=== PATIENT | male | born 1965 | race Caucasian/White ===

== ENCOUNTER 2023-09-04 14:35 | Outpatient (AMB) | payer BC, SELFPAY ==
--- NOTE | 2023-09-04 15:04 | MHC.PC.OV ---
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 Right knee pain. Cant get surgery unless he loses weight. Looking to see if you can refer to [facility] to see if they will do the surgery. Allergies No Known Allergies Allergy (Verified 09/04/23 15:04) Medication List - Last Reconciled 09/04/23 by Marian Abdul PA-C albuterol sulfate 90 mcg/actuation inhalation allopurinol 100 mg PO BID atorvastatin 10 mg PO DAILY colchicine mg PO diclofenac sodium 50 mg PO BID furosemide 20 mg PO DAILY levothyroxine 25 mcg PO DAILY lisinopril 10 mg PO DAILY omeprazole 40 mg PO DAILY tramadol 100 mg PO Q12H PRN Tobacco use date assessed: 09/04/23 Dental Screening Dental Screen Date: 09/04/23 Did you have a dental visit in the last 12 months?: Yes Did you have a dental problem in the last 6 months where you did not have access to dental care?: No Was dental information given to patient?: Patient has dentist HPI 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 He states that he is very frustrated because when he left [facility] they were not refilling his medications and he was told initially that he does not have an appointment here until February. His BMI is over 60. He was unable to get on the scale today but his last known weight was 430 lb. He states he could not get on the scale today because of his right knee. He has using a cane and a brace for this knee but it is severely uncomfortable for him. He has been taking diclofenac and tramadol as previously directed. He was on a CSC with ak for tramadol 100 mg twice a day. He has also been using Tylenol without any improvement. He states that when he takes the tramadol does help it does not help for the 1st few hours. He has been working from home because of the pain. He states that [facility] will not do surgery until he loses the weight. He has to lose at least 40 lb for them to consider him for surgery. He states that finally is job we will cover Leslie for weight loss. We have tried to order this numerous times in the past. He can not afford this [id number]. Does not want to meet with a bariatric surgeon. CV: Blood pressure today in the office is 134/88. He is on lisinopril 10 mg daily and furosemide 40 mg for his lower leg edema. He had negative ultrasounds. He has had a negative nuclear stress test in 2021 and echo. He is on atorvastatin 10 mg for his cholesterol. Endo: His last A1c was 6. Last TSH was WNL. He is compliant with levothyroxine 25 mcg. [facility] Medical History (Updated 09/05/23 @ 09:13 by Marian Abdul PA-C) Tubular adenoma of colon SOB (shortness of breath) on exertion Prediabetes Osteoarthritis Lower leg edema Kidney stone Hypothyroidism HTN (hypertension) Hypercholesteremia Gout GERD (gastroesophageal reflux disease) Degenerative joint disease of knee Class 3 severe obesity with serious comorbidity and body mass index (BMI) of 60.0 to 69.9 in adult Chronic neck pain Family History (Updated 09/04/23 @ 15:30 by Jesica Goss CMA) Mother Cancer of breast Father Diabetes Hypercholesteremia Social History Housing: Apartment Patient Tobacco Use Status: Never used Tobacco e-Cigarette/Vaping Use: Never Used Second Hand Smoke Exposure: No service: No Current occupational status: employed 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 1. Little interest or pleasure in doing things: not at all 2. Feeling down, depressed, or hopeless: not at all 3. Trouble falling or staying asleep, or sleeping too much: not at all 4. Feeling tired or having little energy: not at all 5. Poor appetite or overeating: not at all 6. Feeling bad about yourself - or that you are a failure or have let yourself or your family down: not at all 7. Trouble concentrating on things, such as reading the newspaper or watching television: not at all 8. Moving or speaking so slowly that other people could have noticed. Or the opposite - being so fidgety or restless that you have been moving around a lot more than usual: not at all 9. Thoughts that you would be better off or of hurting yourself in some way: not at all Total score: 0 Depression Screening Interpretation: Negative Depression Screening Done: Yes 10698 - PHQ-9 Billing: Yes Source: Developed by Drs. Danish Marquis, Gloria De Leon, Venu Correa and colleagues, with an educational royer from [employer]. Thrive Questionnaire Date Thrive assessed: 09/04/23 I am a: Patient What is your living situation today?: I have a steady place to live Within the past 12 months, did the food you bought not last and you didn't have the money to get more?: Never true Within the past 12 months, did you worry whether your food would run out before you got money to buy more?: Never true Do you have trouble paying for medicines?: No Do you have trouble getting transportation to medical appointments?: No Do you have trouble paying your heating and electricity bill?: No Do you have trouble taking care of your child, family member or friend?: No Do you have trouble with day-to-day activities such as bathing, preparing meals, shopping, managing finances, etc.?: No Are you currently unemployed and looking for a job?: No Are you interested in more education?: No Please select the resources that you would like help with: None Currently or been in a relationship where the following occur: No concerns reported THRIVE Score: 0 AUDIT C Alcohol Use Questionnaire (AUDIT-C) 1. How often do you have a drink containing alcohol?: 2-3 times a week 2. How many drinks containing alcohol do you have on a typical day when you are drinking?: 1 or 2 3. How often do you have six or more drinks on one occasion?: Never Total Score: 3 PRAKASH-7 AMB Questionnaire PRAKASH-7 Date PRAKASH - 7 assessed: 09/04/23 Feeling nervous, anxious, or on edge: 0 = Not at all Not being able to stop or control worryin = Not at all Worrying too much about different things: 0 = Not at all Trouble relaxin = Not at all Being so restless that it is hard to sit still: 0 = Not at all Becoming easily annoyed or irritable: 0 = Not at all Feeling afraid as if something awful might happen: 0 = Not at all Total PRAKASH-7 score (0-4 normal; 5-9 mild; 10-14 moderate; 15-21 severe): 0 Source: Developed by Drs. Danish Marquis, Gloria De Leon, Venu Correa and colleagues, with an educational royer from [employer]. PRAKASH-7 Assessment Billing PRAKASH-7 Assessment Tool: PRAKASH-7 Assessment 46621 Physical exam (Primary Care) Vital Signs: Last Vital Signs Temp 98.3 F 09/04/23 15:19 Pulse 96 09/04/23 15:19 Resp 20 09/04/23 15:19 BP 134/88 09/04/23 15:19 Pulse Ox 95 09/04/23 15:19 Oxygen Delivery Method Room Air 09/04/23 15:19 BMI Assessment/Plan discussion: High (wegovy) BMI High, discussed plan: lifestyle, weight reduction and dietary Tobacco/Smoking Status: Tobacco use Status Tobacco use date assessed 09/04/23 09/04/23 15:06 Patient Tobacco Use Status Never used Tobacco 09/04/23 15:06 e-Cigarette/Vaping Use Never Used 09/04/23 15:06 PHQ-9: PHQ-9 Score PHQ-9: Total score 0 09/04/23 16:00 Depression Screening Interpretation: Negative Thrive Assessment: Date of Thrive Assessment Date Thrive assessed 09/04/23 09/04/23 15:34 Currently or been in a relationship where the following occur: No concerns reported Const Orientation/consciousness: patient oriented x3 HENMT Ears: hearing grossly normal bilaterally Neck Thyroid: Thyroid normal Lymphatic: no lymphadenopathy noted Resp Auscultation: clear to auscultation bilaterally Cardio Rate: regular rate Rhythm: regular rhythm Heart sounds: S1 normal heart sound present and S2 normal heart sound present Skin General skin exam: no rashes or lesions noted Neuro General: patient oriented x3, gait normal and no focal motor deficits Extrem Other: Right knee is tender throughout. Range of motion limited due to pain. Crepitus noted. 1+ pitting edema noted of the bilateral ankles. Assessment and Plan Assessment & Plan (1) Class 3 severe obesity with serious comorbidity and body mass index (BMI) of 60.0 to 69.9 in adult: Code(s): E66.01 - Morbid (severe) obesity due to excess calories; Z68.44 - Body mass index [BMI] 60.0-69.9, adult Qualifiers: Obesity type: due to excess calories Qualified Code(s): E66.01 - Morbid (severe) obesity due to excess calories; Z68.44 - Body mass index [BMI] 60.0-69.9, adult Plan: will start wegovy. Discussed risks, benefits and adverse effects of the medication at length. Discussed the increased risk of nausea, vomiting, pancreatitis, thyroid malignancy. (2) Hypercholesteremia: Code(s): E78.00 - Pure hypercholesterolemia, unspecified Plan: continue atorvastatin and lipids and lfts. (3) HTN (hypertension): Code(s): I10 - Essential (primary) hypertension Plan: wnl. continue current plan (4) Hypothyroidism: Code(s): E03.9 - Hypothyroidism, unspecified Qualifiers: Hypothyroidism type: acquired Qualified Code(s): E03.9 - Hypothyroidism, unspecified Plan: will check tsh (5) Prediabetes: Code(s): R73.03 - Prediabetes Plan: a1c ordered (6) Chronic pain of right knee: Code(s): M25.561 - Pain in right knee; G89.29 - Other chronic pain Plan: will start oxycodone as needed for severe pain. using assistive devices. We did discuss risks and benefits and adverse effects of this medication at length. He has aware of the potential addictive properties to the oxycodone. Referral to [facility] per his request. I did discuss with him that most surgeons will likely require him to have a reduction in his weight. Plan Advised short term follow up. Labs prior to appointment. We also discussed that given his significant obesity he should have a sleep study. This was ordered for him in the past but he never completed this. More than 1 hour was spent in [id number] time today discussing his previous diagnoses from [facility], his weight in his ongoing complications associated with his weight. Orders: Orders Complete Blood Count Auto Diff 09/04/23 E03.9 - Hypothyroidism, unspecified, E66.01 - Morbid (severe) obesity due to excess calories, E78.00 - Pure hypercholesterolemia, unspecified, G89.29 - Other chronic pain, I10 - Essential (primary) hypertension, M25.561 - Pain in right knee, R73.03 - Prediabetes, Z68.44 - Body mass index [BMI] 60.0-69.9, adult Lipid Panel 09/04/23 E03.9 - Hypothyroidism, unspecified, E66.01 - Morbid (severe) obesity due to excess calories, E78.00 - Pure hypercholesterolemia, unspecified, G89.29 - Other chronic pain, I10 - Essential (primary) hypertension, M25.561 - Pain in right knee, R73.03 - Prediabetes, Z68.44 - Body mass index [BMI] 60.0-69.9, adult Hemoglobin A1c 09/04/23 E66.01 - Morbid (severe) obesity due to excess calories, G89.29 - Other chronic pain, M25.561 - Pain in right knee, R73.03 - Prediabetes, Z68.44 - Body mass index [BMI] 60.0-69.9, adult RT home sleep study 09/04/23 E66.01 - Morbid (severe) obesity due to excess calories, I10 - Essential (primary) hypertension, Z68.44 - Body mass index [BMI] 60.0-69.9, adult Comprehensive [place]. Panel Fast 09/04/23 E03.9 - Hypothyroidism, unspecified, E66.01 - Morbid (severe) obesity due to excess calories, E78.00 - Pure hypercholesterolemia, unspecified, G89.29 - Other chronic pain, I10 - Essential (primary) hypertension, M25.561 - Pain in right knee, R73.03 - Prediabetes, Z68.44 - Body mass index [BMI] 60.0-69.9, adult TSH reflex Free T4 09/04/23 E03.9 - Hypothyroidism, unspecified, E66.01 - Morbid (severe) obesity due to excess calories, E78.00 - Pure hypercholesterolemia, unspecified, G89.29 - Other chronic pain, I10 - Essential (primary) hypertension, M25.561 - Pain in right knee, R73.03 - Prediabetes, Z68.44 - Body mass index [BMI] 60.0-69.9, adult Referrals Orthopedics Referral G89.29 - Other chronic pain, M25.561 - Pain in right knee Medications: New semaglutide (weight loss) (Wegovy) administer weeks 1 through 4 of therapy 0.25 mg (0.5 mL) subcut QWEEK 2 mL 3RF oxycodone Partial Fill upon patient request. 5 mg PO BID 30 days PRN 30 tabs 0RF pain tramadol 100 mg (2 x 50 mg) PO Q12H 28 days PRN 112 tabs 2RF pain furosemide 40 mg (2 x 20 mg) PO DAILY 180 tabs 3RF diclofenac sodium 50 mg PO BID 180 tabs 3RF Coding Level of Care Code Est Pt Level 5 (39407) Complex EM visit Add On G2211 Diagnoses Class 3 severe obesity due to excess calories with serious comorbidity and body mass index (BMI) of 60.0 to 69.9 in adult E66.01; Z68.44 Obesity type: due to excess calories Hypercholesteremia E78.00 HTN (hypertension) I10 Acquired hypothyroidism E03.9 Hypothyroidism type: acquired Prediabetes R73.03 Chronic pain of right knee M25.561; G89.29 Additional Codes PRAKASH-7 Assessment Billing - PRAKASH-7 Assessment Tool: PRAKASH-7 Assessment 59082 ([id number])
[2023-09-04 15:19] VITALS: BP 134/88; PULSE 96; RESP 20; TEMP 36.8; O2SAT 95
== END 2023-09-04 16:04 | disposition home or self-care (01) ==
PROVIDERS: PCP Physician Assistant; Visit Provider Physician Assistant
DX: E78.00 Pure hypercholesterolemia, unspecified (principal); E66.01 Morbid (severe) obesity due to excess calories; Z68.44 Body mass index [BMI] 60.0-69.9, adult; I10 Essential (primary) hypertension; E03.9 Hypothyroidism, unspecified; R73.03 Prediabetes; M25.561 Pain in right knee; G89.29 Other chronic pain
CPT/HCPCS: 99215; 99417

== ENCOUNTER 2023-10-09 14:41 | Outpatient (REF) | payer BC, SELFPAY ==
[2023-10-09 18:02] LABS: MANUAL DIFF FLAG NO
[2023-10-09 18:16] LABS: Basophils Percent Auto 0.3 % (0-2); Eosinophils Absolute Auto 0.2 X10*3/uL (0.0-0.4); Eosinophils Percent Auto 2.6 % (0-4); Hematocrit 47.5 % (42.0-52.0); Hemoglobin 15.6 g/dl (14.0-18.0); Imm Gran Abs Auto 0.04 X10*3/uL (0.00-0.03); Imm Gran Pct Auto 0.5 % (0.0-0.4); Lymphocytes Absolute Auto 2.3 X10*3/uL (1.2-4.9); Lymphocytes Percent Auto 25.8 % (20-40); Mean Corpuscular HGB Conc 32.8 g/dl (31.0-36.0); Mean Corpuscular Hemoglobin 30.1 pg (27.0-33.0); Mean Corpuscular Volume 91.7 fL (80.0-98.0); Mean Platelet Volume 9.5 fL (9.4-12.4); Monocytes Absolute Auto 0.9 X10*3/uL (0.1-1.2); Monocytes Percent Auto 9.6 % (2-11); Neutrophils Absolute Auto 5.4 x10*3/uL (2.0-8.3); Neutrophils Percent Auto 61.2 % (45-73); Platelet Count 289 X10*3/uL (160-400); Red Blood Count 5.18 X10*6/uL (4.60-5.80); Red Cell Distribution Width 12.7 % (11.0-16.0); White Blood Count 8.9 X10*3/uL (4.8-10.8)
[2023-10-09 18:18] LABS: Estimated Average Glucose 114 mg/dL; Hemoglobin A1c % 5.6 % (<6.0)
[2023-10-09 18:36] LABS: Alanine Aminotransferase 40 U/L (0-40); Albumin Level 4.3 g/dL (3.5-5.0); Alkaline Phosphatase 68 U/L (39-117); Anion Gap 13 (12-20); Aspartate Amino Transferase 52 U/L (5-37); Bilirubin Total 0.4 mg/dL (0.0-1.0); Blood Urea Nitrogen 22 mg/dL (9-16); Calcium 9.5 mg/dL (8.4-10.2); Carbon Dioxide 28 mmol/L (22-29); Chloride 102 mmol/L (96-108); Cholesterol 167 mg/dL (<200); Estimated Glomerular Filt Rate > 60; Glucose Fasting 98 mg/dL (60-99); HDL Cholesterol 51 mg/dL (>40); LDL Cholesterol Calculated 70 mg/dL (<100); Potassium 4.3 mmol/L (3.3-5.1); Sodium 139 mmol/L (135-145); Total Protein 7.5 g/dL (6.5-8.0); Triglycerides 232 mg/dL (<150)
[2023-10-09 18:43] LABS: TSH reflex Free T4 3.04 uIU/mL (0.32-4.0)
== END 2023-10-09 14:42 | disposition home or self-care (01) ==
LOC: HO.WFDLDS 14:41
PROVIDERS: Visit Provider Physician Assistant
DX: I10 Essential (primary) hypertension (principal); E78.00 Pure hypercholesterolemia, unspecified; E66.01 Morbid (severe) obesity due to excess calories; Z68.44 Body mass index [BMI] 60.0-69.9, adult; R73.03 Prediabetes; M25.561 Pain in right knee; G89.29 Other chronic pain; E03.9 Hypothyroidism, unspecified
CPT/HCPCS: 36415; 80053; 80061; 83036; 84443; 85025

== ENCOUNTER 2023-11-13 10:10 | Outpatient (AMB) | payer BC, SELFPAY ==
--- NOTE | 2023-11-13 10:08 | MHC.PC.OV ---
Vital Signs 11/13/23 10:19 11/13/23 10:28 Height 5 ft 10.28 in Weight 422 lb 2 oz BMI 60.1 BP 133/94 H 117/73 Blood Pressure Location Rt brachial Rt brachial Position Sitting Respiration 18 Pulse 103 H Pulse Source Pulse Oximeter Pulse Oximetry (%) 99 Oxygen Delivery Method Room Air Intake Visit Reasons: follow up referral Intake Note: Follow up Business Continuity Consultant Required: No Allergies No Known Allergies Allergy (Verified 11/13/23 10:09) Medication List - Last Reconciled 11/13/23 by Marian Abdul PA-C albuterol sulfate 90 mcg/actuation inhalation allopurinol 100 mg PO BID atorvastatin 10 mg PO DAILY colchicine 0.6 mg PO BID diclofenac sodium 50 mg PO BID furosemide 40 mg (2 x 20 mg) PO DAILY levothyroxine 25 mcg PO DAILY lisinopril 10 mg PO DAILY omeprazole 40 mg PO DAILY oxycodone 5 mg PO BID PRN 30 days semaglutide (weight loss) (Wegovy) 0.5 mg (0.5 mL) subcut QWEEK tramadol 100 mg (2 x 50 mg) PO Q12H PRN 28 days Tobacco use date assessed: 11/13/23 Dental Screening Dental Screen Date: 09/04/23 HPI follow up referral HPI Details Patient is a 58-year-old male with a significant past medical history of chronic neck pain, degenerative joint disease of the both knees, severe obesity, GERD, gout, hypertension, hyperlipidemia, hypothyroidism, lower leg edema, prediabetes and chronic shortness a breath presenting today for a follow up on his Wegovy. His BMI is over 60. He is down 14 lbs in the last month due to the wegovy. He states that it makes him not hungry. He does get some nausea with this but likes that he is not hungry and losing weight. He is still eating throughout the day. No abdominal pain. Musculoskeletal: Needs knee replacements but his weight is too high to get that done. CV: Blood pressure today in the office is 117/73. He is on lisinopril 10 mg daily and furosemide 40 mg for his lower leg edema. He had negative ultrasounds. He has had a negative nuclear stress test in 2021 and echo. He is on atorvastatin 10 mg for his cholesterol. Endo: His last A1c was 5.6. Last TSH was WNL. He is compliant with levothyroxine 25 mcg. [facility] Medical History (Updated 09/11/23 @ 11:31 by Marian Abdul PA-C) Tubular adenoma of colon SOB (shortness of breath) on exertion Prediabetes Osteoarthritis Lower leg edema Kidney stone Hypothyroidism HTN (hypertension) Hypercholesteremia Gout GERD (gastroesophageal reflux disease) Degenerative joint disease of knee Class 3 severe obesity with serious comorbidity and body mass index (BMI) of 60.0 to 69.9 in adult Chronic neck pain Family History (Updated 09/04/23 @ 15:30 by Jesica Goss CMA) Mother Cancer of breast Father Diabetes Hypercholesteremia Social History Housing: Apartment Patient Tobacco Use Status: Never used Tobacco e-Cigarette/Vaping Use: Never Used Second Hand Smoke Exposure: No service: No Current occupational status: employed 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 Current occupational exposures/hazards: No Cognitive needs: No Hearing needs: No Vision needs: Yes (reading glasses) Questionnaire Thrive Questionnaire Date Thrive assessed: 11/06/23 I am a: Patient What is your living situation today?: I have a steady place to live Within the past 12 months, did you worry whether your food would run out before you got money to buy more?: Never true Do you have trouble paying for medicines?: No Do you have trouble getting transportation to medical appointments?: No Do you have trouble paying your heating and electricity bill?: No Do you have trouble taking care of your child, family member or friend?: No Do you have trouble with day-to-day activities such as bathing, preparing meals, shopping, managing finances, etc.?: No Are you currently unemployed and looking for a job?: No Are you interested in more education?: No THRIVE Score: 0 PRAKASH-7 AMB Questionnaire PRAKASH-7 Date PRAKASH - 7 assessed: 09/04/23 Source: Developed by Drs. Danish Marquis, Gloria De Leon, Venu Correa and colleagues, with an educational royer from [employer]. Physical exam (Primary Care) Vital Signs: Last Vital Signs Pulse 103 H 11/13/23 10:19 Resp 18 11/13/23 10:19 BP 117/73 11/13/23 10:28 Pulse Ox 99 11/13/23 10:19 Oxygen Delivery Method Room Air 11/13/23 10:19 BMI result Body Mass Index 60.1 Tobacco/Smoking Status: Tobacco use Status Tobacco use date assessed 11/13/23 11/13/23 10:09 Patient Tobacco Use Status Never used Tobacco 11/13/23 10:09 e-Cigarette/Vaping Use Never Used 11/13/23 10:09 Thrive Assessment: Date of Thrive Assessment Date Thrive assessed 11/06/23 11/13/23 10:09 Const Orientation/consciousness: patient oriented x3 HENMT Ears: hearing grossly normal bilaterally Neck Thyroid: Thyroid normal Lymphatic: no lymphadenopathy noted Resp Auscultation: clear to auscultation bilaterally Cardio Rate: regular rate Rhythm: regular rhythm Heart sounds: S1 normal heart sound present and S2 normal heart sound present GI Inspection: Yes normal to inspection Palpation (GI): Soft to palpation and Other GI palpation findings present (nontender, no cva tenderness) Auscultation: normoactive bowel sounds Rectal Exam - Male: Yes deferred Skin General skin exam: no rashes or lesions noted Neuro General: patient oriented x3, gait normal and no focal motor deficits Assessment and Plan Assessment & Plan (1) Class 3 severe obesity with serious comorbidity and body mass index (BMI) of 60.0 to 69.9 in adult: Code(s): E66.01 - Morbid (severe) obesity due to excess calories; Z68.44 - Body mass index [BMI] 60.0-69.9, adult Qualifiers: Obesity type: due to excess calories Qualified Code(s): E66.01 - Morbid (severe) obesity due to excess calories; Z68.44 - Body mass index [BMI] 60.0-69.9, adult Plan: We will increase Wegovy to 1 mg. He will let me know if he does not tolerate this. We will follow up in 3 months. Sooner if needed. (2) Hypercholesteremia: Code(s): E78.00 - Pure hypercholesterolemia, unspecified Plan: We will check lipids. Has been working on a low-fat diet. Continue atorvastatin. We will recheck LFTs. (3) HTN (hypertension): Code(s): I10 - Essential (primary) hypertension Plan: WNL. Continue current regimen (4) Hypothyroidism: Code(s): E03.9 - Hypothyroidism, unspecified Qualifiers: Hypothyroidism type: acquired Qualified Code(s): E03.9 - Hypothyroidism, unspecified Plan: Last TSH WNL. Continue levothyroxine. (5) Prediabetes: Code(s): R73.03 - Prediabetes Plan: Last A1c was normal. Orders: Orders Lipid Panel Today E03.9 - Hypothyroidism, unspecified, E66.01 - Morbid (severe) obesity due to excess calories, E78.00 - Pure hypercholesterolemia, unspecified, I10 - Essential (primary) hypertension, R73.03 - Prediabetes, Z68.44 - Body mass index [BMI] 60.0-69.9, adult TSH reflex Free T4 Today E03.9 - Hypothyroidism, unspecified, E66.01 - Morbid (severe) obesity due to excess calories, E78.00 - Pure hypercholesterolemia, unspecified, I10 - Essential (primary) hypertension, R73.03 - Prediabetes, Z68.44 - Body mass index [BMI] 60.0-69.9, adult Comprehensive [place]. Panel Fast Today E03.9 - Hypothyroidism, unspecified, E66.01 - Morbid (severe) obesity due to excess calories, E78.00 - Pure hypercholesterolemia, unspecified, I10 - Essential (primary) hypertension, R73.03 - Prediabetes, Z68.44 - Body mass index [BMI] 60.0-69.9, adult Hemoglobin A1c Today E03.9 - Hypothyroidism, unspecified, E66.01 - Morbid (severe) obesity due to excess calories, E78.00 - Pure hypercholesterolemia, unspecified, I10 - Essential (primary) hypertension, R73.03 - Prediabetes, Z68.44 - Body mass index [BMI] 60.0-69.9, adult Medications: New semaglutide (weight loss) (Wegovy) 1 mg (0.5 mL) subcut QWEEK 2 mL 1RF Discontinued semaglutide (weight loss) (Wegovy) administer weeks 5 through 8 of therapy Discontinued Reason: Doctor's Order 0.5 mg (0.5 mL) subcut QWEEK 2 mL 1RF Coding Level of Care Code Est Pt Level 4 (94835) Complex EM visit Add On G2211 Diagnoses Class 3 severe obesity due to excess calories with serious comorbidity and body mass index (BMI) of 60.0 to 69.9 in adult E66.01; Z68.44 Obesity type: due to excess calories Hypercholesteremia E78.00 HTN (hypertension) I10 Acquired hypothyroidism E03.9 Hypothyroidism type: acquired Prediabetes R73.03
[2023-11-13 10:19] VITALS: BP 133/94; PULSE 103; RESP 18; O2SAT 99; BMI 60.1
[2023-11-13 10:28] VITALS: BP 117/73
== END 2023-11-13 10:49 | disposition home or self-care (01) ==
PROVIDERS: PCP Physician Assistant; Visit Provider Physician Assistant
DX: E66.01 Morbid (severe) obesity due to excess calories (principal); Z68.44 Body mass index [BMI] 60.0-69.9, adult; E78.00 Pure hypercholesterolemia, unspecified; I10 Essential (primary) hypertension; E03.9 Hypothyroidism, unspecified; R73.03 Prediabetes

== ENCOUNTER → 2023-11-13 10:10 | Outpatient (BNVA) | payer BC, SELFPAY | PROVIDERS: PCP Physician Assistant; Visit Provider Physician Assistant | DX: E66.01 Morbid (severe) obesity due to excess calories (principal); Z68.44 Body mass index [BMI] 60.0-69.9, adult; E78.00 Pure hypercholesterolemia, unspecified; I10 Essential (primary) hypertension; E03.9 Hypothyroidism, unspecified; R73.03 Prediabetes ==

== ENCOUNTER 2024-02-05 13:51 | Outpatient (AMB) | payer BC, SELFPAY ==
--- NOTE | 2024-02-05 14:13 | A.OFFPC_ITS ---
Vital Signs 02/05/24 14:18 Height 5 ft 10.28 in Weight 417 lb 6 oz BMI 59.4 BP 118/72 Blood Pressure Location Lt brachial Pulse 89 Pulse Source Pulse Oximeter Pulse Oximetry (%) 96 Oxygen Delivery Method Room Air Intake Visit Reasons: htn Intake Note: HTN follow up Allergies No Known Allergies Allergy (Verified 11/13/23 10:09) Medication List - Last Reconciled 02/05/24 by Marian Abdul PA-C albuterol sulfate 90 mcg/actuation inhalation allopurinol 100 mg PO BID atorvastatin 10 mg PO DAILY colchicine 0.6 mg PO BID diclofenac sodium 50 mg PO BID furosemide 40 mg (2 x 20 mg) PO DAILY levothyroxine 25 mcg PO DAILY lisinopril 10 mg PO DAILY omeprazole 40 mg PO DAILY oxycodone 5 mg PO BID PRN 30 days semaglutide (weight loss) (Leslie) 2.4 mg (0.75 mL) subcut QWEEK tramadol 100 mg (2 x 50 mg) PO Q12H PRN 28 days Tobacco use date assessed: 11/13/23 Dental Screening Dental Screen Date: 09/04/23 HPI htn HPI Details History of Present Illness The patient is a 58-year-old male presenting with concerns related to hypertension, hyperlipidemia, thyroid function, and weight management. He reports a blood pressure reading of 117/82 mmHg and is currently on lisinopril 10 mg daily and furosemide for hypertension. His cholesterol management includes atorvastatin. The patient has been managing obesity with semaglutide, reporting a weight loss of nearly 30 pounds in about four and a half months and has only been on 2.4 mg weekly for the last two weeks. He experiences significant nausea post-injection, which has improved over time. He has tried and failed numerous diets including Atkins, [place], keto etc.. Patient's knee pain persists, likely exacerbated by obesity. He frequently experiences knee pain, but it has not shown improvement even with weight loss efforts. His thyroid function is managed with levothyroxine, taken at night. Gout has been under control with colchicine taken as needed for flares and allopurinol. Health Maintenance - Engaged in weight management with diet tomy modifications and medication (semaglutide). - Planning to begin physical activity us ing a rowing machine. - Scheduled for a colonoscopy in February . - Discussed downloading an eduar for dieta ry management (Right BMI). - Blood pressure and cholesterol managem ent with ongoing medication. - Discussion of a lifestyle eduar develope d for bariatric patient weight management. Social History - Plans to retire in 16 months. - Reports financial constraints with a [facility] management, uses a Health Reimbursement Arrangement (HRA). - Currently practices a structured dieta ry plan with detailed meal preparations focused on low caloric intake. Review of Systems - Musculoskeletal: Reports persistent kn ee pain. - Gastrointestinal: Reports nausea assoc iated with semaglutide usage. Physical Exam General: Well developed, well nourished, in no acute distress. Appears stated age. Head: Normocephalic, atraumatic. Neck: Supple, no adenopathy or thyromegaly. Lungs: Clear to auscultation bilaterally. No rales, rhonchi or wheeze noted. Good air flow in all fish. Heart: Regular rate and rhythm. Extremities: No clubbing, cyanosis nor edema is noted. Skin: No rashes, ulcers, or lesions noted. Turgor is good. Skin color is good. Hair and nails are without abnormalities. Psych: Normal eye contact, affect and mood appropriate, and normal interactions. Patient is alert and appropriate to context. Results Plan - Continue lisinopril 10 mg for blood pr essure control and monitor. - Maintain Atorvastatin for hyperlipidem ia management. - Schedule labs for cholesterol, liver f unction, kidney function, electrolytes, and thyroid function. - Continue semaglutide, encourage monito ring and management of nausea. - Suggest beginning physical activity as planned with the rowing machine. - Manage knee pain conservatively; consi pelon orthopedic evaluation if persists. - Continue allopurinol and colchicine as needed for gout, avoid daily colchicine use. - Will review PSA levels with routine la bs to check prostate health. Patient was informed and verbally consented to the use of an ambient scribe for clinic note documentation during this visit. Discussion Notes I discussed the importance of continuing the current hypertension and hyperlipidemia management. The significance of monitoring thyroid and cholesterol levels through scheduled labs was emphasized. I pointed out that weight loss takes time and the patient is making satisfactory progress on semaglutide, despite some nausea. I advised starting an exercise regimen with the rowing machine to help with weight management and potential reduction in knee pain. We talked about the financial implications of Wegovy and how HRA can offset some costs. I reassured the patient that we would petition for insurance coverage of [place] considering the documented success after the first year. Patient was encouraged to follow the dietary eduar developed for weight control. Patient Instructions [facility] Medical History (Updated 09/11/23 @ 11:31 by Marian Abdul PA-C) Tubular adenoma of colon SOB (shortness of breath) on exertion Prediabetes Osteoarthritis Lower leg edema Kidney stone Hypothyroidism HTN (hypertension) Hypercholesteremia Gout GERD (gastroesophageal reflux disease) Degenerative joint disease of knee Class 3 severe obesity with serious comorbidity and body mass index (BMI) of 60.0 to 69.9 in adult Chronic neck pain Family History (Updated 09/04/23 @ 15:30 by Jesica Goss CMA) Mother Cancer of breast Father Diabetes Hypercholesteremia Social History Housing: Apartment Patient Tobacco Use Status: Never used Tobacco e-Cigarette/Vaping Use: Never Used Second Hand Smoke Exposure: No service: No Current occupational status: employed 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 Current occupational exposures/hazards: No Cognitive needs: No Hearing needs: No Vision needs: Yes (reading glasses) Questionnaire Thrive Questionnaire Date Thrive assessed: 11/06/23 I am a: Patient What is your living situation today?: I have a steady place to live Within the past 12 months, did the food you bought not last and you didn't have the money to get more?: Never true Within the past 12 months, did you worry whether your food would run out before you got money to buy more?: Never true Do you have trouble paying for medicines?: No Do you have trouble getting transportation to medical appointments?: No Do you have trouble paying your heating and electricity bill?: No Do you have trouble taking care of your child, family member or friend?: No Do you have trouble with day-to-day activities such as bathing, preparing meals, shopping, managing finances, etc.?: No Are you currently unemployed and looking for a job?: No Are you interested in more education?: No Please select the resources that you would like help with: None Currently or been in a relationship where the following occur: No concerns reported THRIVE Score: 0 PRAKASH-7 AMB Questionnaire PRAKASH-7 Date PRAKASH - 7 assessed: 09/04/23 Source: Developed by Tony Brownet B.W. Moises, Venu Correa and colleagues, with an educational royer from [employer]. Physical exam (Primary Care) Vital Signs: Last Vital Signs Pulse 89 02/05/24 14:18 BP 118/72 02/05/24 14:18 Pulse Ox 96 02/05/24 14:18 Oxygen Delivery Method Room Air 02/05/24 14:18 BMI result Body Mass Index 59.4 Tobacco/Smoking Status: Tobacco use Status Tobacco use date assessed 11/13/23 02/05/24 14:15 Patient Tobacco Use Status Never used Tobacco 02/05/24 14:15 e-Cigarette/Vaping Use Never Used 02/05/24 14:15 Thrive Assessment: Date of Thrive Assessment Date Thrive assessed 11/06/23 02/05/24 14:15 Currently or been in a relationship where the following occur: No concerns reported Coding Level of Care Code Est Pt Level 4 (98952) Complex EM visit Add On G2211 Diagnoses Hypercholesteremia E78.00 HTN (hypertension) I10 Acquired hypothyroidism E03.9 Hypothyroidism type: acquired Assessment & Plan Assessment & Plan (1) Hypercholesteremia: Code(s): E78.00 - Pure hypercholesterolemia, unspecified Category: Medical (2) HTN (hypertension): Code(s): I10 - Essential (primary) hypertension Category: Medical (3) Hypothyroidism: Code(s): E03.9 - Hypothyroidism, unspecified Category: Medical Qualifiers: Hypothyroidism type: acquired Qualified Code(s): E03.9 - Hypothyroidism, unspecified Plan . Orders: Orders Comprehensive [place]. Panel Fast Today E03.9 - Hypothyroidism, unspecified, E78.00 - Pure hypercholesterolemia, unspecified, I10 - Essential (primary) hypertension TSH reflex Free T4 Today E03.9 - Hypothyroidism, unspecified, E78.00 - Pure hypercholesterolemia, unspecified, I10 - Essential (primary) hypertension Prostate Specific Antigen Scr Today Z01.89 - Encounter for other specified special examinations Lipid Panel Today E03.9 - Hypothyroidism, unspecified, E78.00 - Pure hypercholesterolemia, unspecified, I10 - Essential (primary) hypertension Complete Blood Count Auto Diff Today E03.9 - Hypothyroidism, unspecified, E78.00 - Pure hypercholesterolemia, unspecified, I10 - Essential (primary) hypertension
[2024-02-05 14:18] VITALS: BP 118/72; PULSE 89; O2SAT 96; BMI 59.4
== END 2024-02-05 14:49 | disposition home or self-care (01) ==
PROVIDERS: PCP Physician Assistant; Visit Provider Physician Assistant
DX: E78.00 Pure hypercholesterolemia, unspecified (principal); I10 Essential (primary) hypertension; E03.9 Hypothyroidism, unspecified

== ENCOUNTER 2024-03-11 09:30 | Outpatient (AMB) | payer BC, SELFPAY ==
--- NOTE | 2024-03-11 09:27 | MHC.PC.OV ---
Intake Visit Reasons: discuss covered weight loss drug Intake Note: Discuss medication for weight loss covered by insurance. Engineering Coordinator Required: No Allergies No Known Allergies Allergy (Verified 03/11/24 09:28) Tobacco use date assessed: 11/13/23 Dental Screening Dental Screen Date: 09/04/23 [facility] Medical History (Updated 09/11/23 @ 11:31 by Marian Abdul PA-C) Tubular adenoma of colon SOB (shortness of breath) on exertion Prediabetes Osteoarthritis Lower leg edema Kidney stone Hypothyroidism HTN (hypertension) Hypercholesteremia Gout GERD (gastroesophageal reflux disease) Degenerative joint disease of knee Class 3 severe obesity with serious comorbidity and body mass index (BMI) of 60.0 to 69.9 in adult Chronic neck pain Family History (Updated 09/04/23 @ 15:30 by Jesica Goss CMA) Mother Cancer of breast Father Diabetes Hypercholesteremia Social History Housing: Apartment Patient Tobacco Use Status: Never used Tobacco e-Cigarette/Vaping Use: Never Used Second Hand Smoke Exposure: No service: No Current occupational status: employed 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 Danish Marquis, Gloria De Leon, Venu Correa and colleagues, with an educational royer from [employer]. Physical exam (Primary Care) Tobacco/Smoking Status: Tobacco use Status Tobacco use date assessed 11/13/23 02/05/24 14:15 Patient Tobacco Use Status Never used Tobacco 02/05/24 14:15 e-Cigarette/Vaping Use Never Used 02/05/24 14:15 Thrive Assessment: Date of Thrive Assessment Date Thrive assessed 11/06/23 02/05/24 14:15 Telehealth Telehealth Telehealth Platform: Telephone Location of provider rendering services: other (work) Location of patient: address on file Patient Identification confirmed using: Name, : Yes Telehealth method: voice only Patient verbally consented to treatment: Yes Patient verbally consented to billing insurance company: Yes Patient informed of any privacy concerns related to visit: Yes Coding
--- NOTE | 2024-03-11 10:15 | A.OFFVIS_ITS ---
Intake Visit Reasons: discuss covered weight loss drug Allergies No Known Allergies Allergy (Verified 03/11/24 09:28) Medication List - Last Reconciled 03/11/24 by Marian Abdul PA-C albuterol sulfate 90 mcg/actuation inhalation allopurinol 100 mg PO BID atorvastatin 10 mg PO DAILY colchicine 0.6 mg PO BID diclofenac sodium 50 mg PO BID furosemide 40 mg (2 x 20 mg) PO DAILY levothyroxine 25 mcg PO DAILY lisinopril 10 mg PO DAILY omeprazole 40 mg PO DAILY semaglutide (weight loss) (Wegovy) 2.4 mg (0.75 mL) subcut QWEEK HPI HPI discuss covered weight loss drug: Details: The patient is a 58-year-old male presenting with concerns related to weight management. The patient has been managing obesity with semaglutide, reporting a weight loss of nearly 35 pounds in about 5 months and is on 2.4 mg weekly and is doing great. He does not want to switch medications as it took him a while to build up to the 2.4 mg. He states that he is going to continue to pay [id number] for this. He has tried and failed numerous diets including Atkins, [place], keto etc.. [facility] Medical History (Updated 09/11/23 @ 11:31 by Marian Abdul PA-C) Tubular adenoma of colon SOB (shortness of breath) on exertion Prediabetes Osteoarthritis Lower leg edema Kidney stone Hypothyroidism HTN (hypertension) Hypercholesteremia Gout GERD (gastroesophageal reflux disease) Degenerative joint disease of knee Class 3 severe obesity with serious comorbidity and body mass index (BMI) of 60.0 to 69.9 in adult Chronic neck pain Family History (Updated 09/04/23 @ 15:30 by Jesica Goss CMA) Mother Cancer of breast Father Diabetes Hypercholesteremia Social History Housing: Apartment Patient Tobacco Use Status: Never used Tobacco e-Cigarette/Vaping Use: Never Used Second Hand Smoke Exposure: No service: No Current occupational status: employed 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 Current occupational exposures/hazards: No Cognitive needs: No Hearing needs: No Vision needs: Yes (reading glasses) Telehealth Telehealth Telehealth Platform: Telephone Location of provider rendering services: practice address Location of patient: address on file Patient Identification confirmed using: Name, : Yes Telehealth method: voice only Patient verbally consented to treatment: Yes Patient verbally consented to billing insurance company: Yes Patient informed of any privacy concerns related to visit: Yes Minutes spent on Phone/Video with Pt.: 11 Assessment & Plan Assessment & Plan (1) Class 3 severe obesity with serious comorbidity and body mass index (BMI) of 60.0 to 69.9 in adult: Code(s): E66.01 - Morbid (severe) obesity due to excess calories; Z68.44 - Body mass index [BMI] 60.0-69.9, adult Category: Medical Qualifiers: Obesity type: due to excess calories Qualified Code(s): E66.01 - Morbid (severe) obesity due to excess calories; Z68.44 - Body mass index [BMI] 60.0- 69.9, adult Plan: He does not want to switch medications. We did review that his insurance wants him to try and fail phentermine or contrave 1st but he does not want to take this. He is finally in the 2.4 mg of Wegovy and doing well. We will continue current regimen and follow up in a few months. (2) HTN (hypertension): Code(s): I10 - Essential (primary) hypertension Category: Medical Plan: Reports normal readings. Continue lisinopril and furosemide. Coding Level of Care Code Tele Est Pt Level 2 (42342) Diagnoses Class 3 severe obesity due to excess calories with serious comorbidity and body mass index (BMI) of 60.0 to 69.9 in adult E66.01; Z68.44 Obesity type: due to excess calories HTN (hypertension) I10
== END 2024-03-11 10:11 | disposition home or self-care (01) ==
LOC: HO.HMCFM 09:30
PROVIDERS: PCP Physician Assistant; Visit Provider Physician Assistant
DX: E66.01 Morbid (severe) obesity due to excess calories (principal); Z68.44 Body mass index [BMI] 60.0-69.9, adult; I10 Essential (primary) hypertension

== ENCOUNTER 2024-05-06 09:59 | Outpatient (REF) | payer BC, SELFPAY ==
[2024-05-06 11:23] LABS: MANUAL DIFF FLAG NO
[2024-05-06 11:34] LABS: Basophils Absolute Auto 0.1 X10*3/uL (0.0-0.2); Basophils Percent Auto 0.5 % (0-2); Eosinophils Absolute Auto 0.2 X10*3/uL (0.0-0.4); Eosinophils Percent Auto 1.7 % (0-4); Hematocrit 47.1 % (42.0-52.0); Hemoglobin 15.7 g/dl (14.0-18.0); Imm Gran Abs Auto 0.06 X10*3/uL (0.00-0.03); Imm Gran Pct Auto 0.6 % (0.0-0.4); Lymphocytes Absolute Auto 2.3 X10*3/uL (1.2-4.9); Lymphocytes Percent Auto 24.8 % (20-40); Mean Corpuscular HGB Conc 33.3 g/dl (31.0-36.0); Mean Corpuscular Hemoglobin 30.1 pg (27.0-33.0); Mean Corpuscular Volume 90.2 fL (80.0-98.0); Monocytes Absolute Auto 0.7 X10*3/uL (0.1-1.2); Monocytes Percent Auto 7.2 % (2-11); Neutrophils Absolute Auto 6.1 x10*3/uL (2.0-8.3); Neutrophils Percent Auto 65.2 % (45-73); Platelet Count 331 X10*3/uL (160-400); Red Blood Count 5.22 X10*6/uL (4.60-5.80); Red Cell Distribution Width 12.6 % (11.0-16.0); White Blood Count 9.4 X10*3/uL (4.8-10.8)
[2024-05-06 11:42] LABS: Estimated Average Glucose 111 mg/dL; Hemoglobin A1C 148.1789 umol/L; Hemoglobin A1c % 5.5 % (<6.0); Total Hemoglobin (HGBA1C) 4046.5591 umol/L
[2024-05-06 12:12] LABS: Prostate Specific Antigen Scr 0.73 ng/mL (<0.05-4.0)
[2024-05-06 12:18] LABS: Alanine Aminotransferase 17 U/L (0-40); Albumin Level 4.4 g/dL (3.5-5.0); Alkaline Phosphatase 57 U/L (39-117); Anion Gap 14 (12-20); Aspartate Amino Transferase 25 U/L (5-37); Bilirubin Total 0.7 mg/dL (0.0-1.0); Blood Urea Nitrogen 19 mg/dL (9-16); Calcium 9.4 mg/dL (8.4-10.2); Carbon Dioxide 26 mmol/L (22-29); Chloride 102 mmol/L (96-108); Cholesterol 156 mg/dL (<200); Estimated Glomerular Filt Rate > 60; Glucose Fasting 91 mg/dL (60-99); HDL Cholesterol 51 mg/dL (>40); LDL Cholesterol Calculated 79 mg/dL (<100); Potassium 3.9 mmol/L (3.3-5.1); Sodium 138 mmol/L (135-145); TSH reflex Free T4 1.98 uIU/mL (0.32-4.0); Total Protein 8.1 g/dL (6.5-8.0); Triglycerides 132 mg/dL (<150)
== END 2024-05-06 10:00 | disposition home or self-care (01) ==
LOC: HO.WFDLDS 09:59
PROVIDERS: Visit Provider Physician Assistant
DX: I10 Essential (primary) hypertension (principal); E78.00 Pure hypercholesterolemia, unspecified; E03.9 Hypothyroidism, unspecified; R73.03 Prediabetes; E66.01 Morbid (severe) obesity due to excess calories; Z68.44 Body mass index [BMI] 60.0-69.9, adult; Z01.89 Encounter for other specified special examinations; Z12.5 Encounter for screening for malignant neoplasm of prostate
CPT/HCPCS: 36415; 80053; 80061; 83036; 84153; 84443; 85025

== ENCOUNTER 2024-05-13 13:47 | Outpatient (AMB) | payer BC, SELFPAY ==
--- NOTE | 2024-05-13 14:07 | A.OFFPC_ITS ---
Vital Signs 05/13/24 14:09 Height 5 ft 10.28 in Weight 411 lb 6 oz BMI 58.6 BP 124/86 Blood Pressure Location Rt brachial Position Sitting Respiration 18 Pulse 103 H Pulse Source Pulse Oximeter Pulse Oximetry (%) 95 Oxygen Delivery Method Room Air Intake Visit Reasons: weight check, bp Intake Note: Follow up weight and blood pressure Sales And Distribution Clerk Required: No Allergies No Known Allergies Allergy (Verified 05/13/24 14:08) Tobacco use date assessed: 05/13/24 Dental Screening Dental Screen Date: 09/04/23 HPI weight check, bp HPI Details Patient is a 59-year-old male presenting with concerns related to hypertension, hyperlipidemia, thyroid function, and weight management. CV: blood pressure reading of 124/86 and is currently on lisinopril 10 mg daily and furosemide for hypertension. His cholesterol management includes atorvastatin. General: The patient has been managing obesity with semaglutide. He is happy that he is still losing weight despite not making the best diet choices over the last couple of months. He states it has been stressful at home between selling a house and buying a bar. He states that he has not been eating the best but is still losing and since our last visit has lost 6 lb. Overall he is close to about 40 lb that he has lost since starting Wegovy. He has tried and failed numerous diets including Atkins, [place], keto etc.. Musculoskeletal: Patient's knee pain persists, likely exacerbated by obesity. He frequently experiences knee pain, but it has not shown improvement even with weight loss efforts. Gout has been under control with colchicine taken as needed for flares and allopurinol. Endo: His thyroid function is managed with levothyroxine. [facility] Medical History (Updated 05/13/24 @ 14:39 by Marian Abdul PA-C) Tubular adenoma of colon SOB (shortness of breath) on exertion Prediabetes Osteoarthritis Lower leg edema Kidney stone Hypothyroidism HTN (hypertension) Hypercholesteremia Gout GERD (gastroesophageal reflux disease) Degenerative joint disease of knee Class 3 severe obesity with serious comorbidity and body mass index (BMI) of 60.0 to 69.9 in adult Chronic neck pain Family History Mother Cancer of breast Father Diabetes Hypercholesteremia Social History (Updated 05/13/24 @ 14:08 by Jesica Goss CMA) Housing: Apartment Alcohol intake: current Patient Tobacco Use Status: Never used Tobacco e-Cigarette/Vaping Use: Never Used Second Hand Smoke Exposure: No service: No Current occupational status: employed 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 1. Little interest or pleasure in doing things: not at all 2. Feeling down, depressed, or hopeless: not at all 3. Trouble falling or staying asleep, or sleeping too much: not at all 4. Feeling tired or having little energy: not at all 5. Poor appetite or overeating: not at all 6. Feeling bad about yourself - or that you are a failure or have let yourself or your family down: not at all 7. Trouble concentrating on things, such as reading the newspaper or watching television: not at all 8. Moving or speaking so slowly that other people could have noticed. Or the opposite - being so fidgety or restless that you have been moving around a lot more than usual: not at all 9. Thoughts that you would be better off or of hurting yourself in some way: not at all Total score: 0 Depression Screening Interpretation: Negative Depression Screening Done: Yes 31267 - PHQ-9 Billing: Yes Source: Developed by Drs. Danish Marquis, Gloria De Leon, Venu Correa and colleagues, with an educational royer from [employer]. Thrive Questionnaire Date Thrive assessed: 11/06/23 I am a: Patient What is your living situation today?: I choose not to answer this question Within the past 12 months, did the food you bought not last and you didn't have the money to get more?: Never true Within the past 12 months, did you worry whether your food would run out before you got money to buy more?: Never true Do you have trouble paying for medicines?: No Do you have trouble getting transportation to medical appointments?: No Do you have trouble paying your heating and electricity bill?: No Do you have trouble taking care of your child, family member or friend?: No Do you have trouble with day-to-day activities such as bathing, preparing meals, shopping, managing finances, etc.?: No Are you currently unemployed and looking for a job?: No Are you interested in more education?: No Please select the resources that you would like help with: None Currently or been in a relationship where the following occur: No concerns reported THRIVE Score: 0 AUDIT C Alcohol Use Questionnaire (AUDIT-C) 1. How often do you have a drink containing alcohol?: 2-4 times a month 2. How many drinks containing alcohol do you have on a typical day when you are drinking?: 3 or 4 3. How often do you have six or more drinks on one occasion?: Less than monthly Total Score: 4 PRAKASH-7 AMB Questionnaire PRAKASH-7 Date PRAKASH - 7 assessed: 05/13/24 Feeling nervous, anxious, or on edge: 0 = Not at all Not being able to stop or control worryin = Not at all Worrying too much about different things: 0 = Not at all Trouble relaxin = Not at all Being so restless that it is hard to sit still: 0 = Not at all Becoming easily annoyed or irritable: 0 = Not at all Feeling afraid as if something awful might happen: 0 = Not at all Total PRAKASH-7 score (0-4 normal; 5-9 mild; 10-14 moderate; 15-21 severe): 0 Source: Developed by Drs. Danish Marquis, Gloria De Leon, Venu Correa and colleagues, with an educational royer from [employer]. PRAKASH-7 Assessment Billing PRAKASH-7 Assessment Tool: PRAKASH-7 Assessment 44594 Physical exam (Primary Care) Vital Signs: Last Vital Signs Pulse 103 H 05/13/24 14:09 Resp 18 05/13/24 14:09 BP 124/86 05/13/24 14:09 Pulse Ox 95 05/13/24 14:09 Oxygen Delivery Method Room Air 05/13/24 14:09 BMI result Body Mass Index 58.6 Tobacco/Smoking Status: Tobacco use Status Tobacco use date assessed 05/13/24 05/13/24 14:10 Patient Tobacco Use Status Never used Tobacco 05/13/24 14:10 e-Cigarette/Vaping Use Never Used 05/13/24 14:10 PHQ-9: PHQ-9 Score PHQ-9: Total score 0 05/13/24 14:27 Depression Screening Interpretation: Negative Thrive Assessment: Date of Thrive Assessment Date Thrive assessed 11/06/23 05/13/24 14:10 Currently or been in a relationship where the following occur: No concerns reported Const Orientation/consciousness: patient oriented x3 HENMT Ears: hearing grossly normal bilaterally Neck Thyroid: Thyroid normal Lymphatic: no lymphadenopathy noted Resp Auscultation: clear to auscultation bilaterally Cardio Rate: regular rate Rhythm: regular rhythm Heart sounds: S1 normal heart sound present and S2 normal heart sound present GI Inspection: Yes normal to inspection Palpation (GI): Soft to palpation and Other GI palpation findings present (nontender, no cva tenderness) Auscultation: normoactive bowel sounds Rectal Exam - Male: Yes deferred Skin General skin exam: no rashes or lesions noted Neuro General: patient oriented x3, gait normal and no focal motor deficits Results Reviewed Results Reviewed: Laboratory Tests 10/09/23 05/06/24 14:43 10:00 WBC 8.9 9.4 RBC 5.18 5.22 Hgb 15.6 15.7 Hct 47.5 47.1 Plt Count 289 331 Sodium 139 138 Potassium 4.3 3.9 Chloride 102 102 Carbon Dioxide 28 26 Anion Gap 13 14 BUN 19 H Creatinine 1.06 1.02 Estimated GFR > 60 > 60 Fasting Glucose 91 Hemoglobin A1c % 5.6 5.5 AST 52 H ALT 40 Triglycerides 232 H 132 Cholesterol 167 156 LDL Cholesterol, Calc 70 79 HDL Cholesterol 51 51 PSA Screen 0.73 TSH 3.04 1.98 Coding Level of Care Code Est Pt Level 4 (09165) Complex EM visit Add On G2211 Diagnoses HTN (hypertension) I10 Hypercholesteremia E78.00 Acquired hypothyroidism E03.9 Hypothyroidism type: acquired Gout M10.9 Class 3 severe obesity due to excess calories with serious comorbidity and body mass index (BMI) of 60.0 to 69.9 in adult E66.01; Z68.44 Obesity type: due to excess calories Additional Codes PRAKASH-7 Assessment Billing - PRAKASH-7 Assessment Tool: PRAKASH-7 Assessment 73520 ([id number]) PHQ-9 - 34124 - PHQ-9 Billing: Yes ([id number]) Assessment & Plan Assessment & Plan (1) HTN (hypertension): Code(s): I10 - Essential (primary) hypertension Category: Medical Plan: Continue current regimen (2) Hypercholesteremia: Code(s): E78.00 - Pure hypercholesterolemia, unspecified Category: Medical Plan: Lipids well-controlled. Reviewed labs today. (3) Hypothyroidism: Code(s): E03.9 - Hypothyroidism, unspecified Category: Medical Qualifiers: Hypothyroidism type: acquired Qualified Code(s): E03.9 - Hypothyroidism, unspecified Plan: TSH WNL. Continue levothyroxine. (4) Gout: Code(s): M10.9 - Gout, unspecified Category: Medical Plan: We will monitor uric acid and gout flares. (5) Class 3 severe obesity with serious comorbidity and body mass index (BMI) of 60.0 to 69.9 in adult: Code(s): E66.01 - Morbid (severe) obesity due to excess calories; Z68.44 - Body mass index [BMI] 60.0-69.9, adult Category: Medical Qualifiers: Obesity type: due to excess calories Qualified Code(s): E66.01 - Morbid (severe) obesity due to excess calories; Z68.44 - Body mass index [BMI] 60.0- 69.9, adult Plan: Continue semaglutide. Orders: Orders Uric Acid 05/13/24 M10.9 - Gout, unspecified
[2024-05-13 14:09] VITALS: BP 124/86; PULSE 103; RESP 18; O2SAT 95; BMI 58.6
== END 2024-05-13 14:45 | disposition home or self-care (01) ==
LOC: HO.HMCFM 13:48
PROVIDERS: PCP Physician Assistant; Visit Provider Physician Assistant
DX: I10 Essential (primary) hypertension (principal); E78.00 Pure hypercholesterolemia, unspecified; E66.01 Morbid (severe) obesity due to excess calories; Z68.44 Body mass index [BMI] 60.0-69.9, adult; E03.9 Hypothyroidism, unspecified; M10.9 Gout, unspecified

== ENCOUNTER → 2024-05-13 13:47 | Outpatient (BNVA) | payer BC, SELFPAY | PROVIDERS: PCP Physician Assistant; Visit Provider Physician Assistant | DX: I10 Essential (primary) hypertension (principal); E78.00 Pure hypercholesterolemia, unspecified; E03.9 Hypothyroidism, unspecified; M10.9 Gout, unspecified; E66.01 Morbid (severe) obesity due to excess calories; Z68.44 Body mass index [BMI] 60.0-69.9, adult | CPT/HCPCS: 96127 ==

== ENCOUNTER 2024-09-16 14:01 | Outpatient (AMB) | payer BC, SELFPAY ==
[2024-09-16 14:04] VITALS: BP 142/73; PULSE 96; RESP 16; TEMP 36.8; O2SAT 93; BMI 59.8
--- NOTE | 2024-09-16 14:04 | A.OFFPC_ITS ---
Vital Signs 09/16/24 14:04 09/16/24 14:14 Height 5 ft 10 in Weight 417 lb 2 oz BMI 59.8 BP 142/73 H 103/56 L Blood Pressure Location Rt brachial Lt brachial Position Sitting Sitting Respiration 16 Pulse 96 Pulse Source Pulse Oximeter Temp 98.2 F Temp Source Oral Pulse Oximetry (%) 93 Oxygen Delivery Method Room Air Intake Visit Reasons: bp and weight check Intake Note: Blood pressure and weight pressure follow up. Wants to come off Wegovy. Experienced sxs: elevated heart rate at night, stomach pain, nausea. Staff Certified Nurse Midwife Required: No Allergies No Known Allergies Allergy (Verified 09/16/24 14:07) Medication List - Last Reconciled 09/16/24 by Marian Abdul PA-C allopurinol 100 mg PO BID atorvastatin 10 mg PO DAILY colchicine 0.6 mg PO BID diclofenac sodium 50 mg PO BID furosemide 40 mg (2 x 20 mg) PO DAILY levothyroxine 25 mcg PO DAILY lisinopril 10 mg PO DAILY omeprazole 40 mg PO DAILY semaglutide (weight loss) (Wegovy) 2.4 mg (0.75 mL) subcut QWEEK Tobacco use date assessed: 05/13/24 Dental Screening Dental Screen Date: 09/16/24 Did you have a dental visit in the last 12 months?: No Did you have a dental problem in the last 6 months where you did not have access to dental care?: No Was dental information given to patient?: Patient has dentist HPI bp and weight check HPI Details Patient is a 59-year-old male presenting with concerns related to hypertension, hyperlipidemia, thyroid function, and weight management. CV: blood pressure reading of 103/56. and is currently on lisinopril 10 mg daily and furosemide for hypertension. His cholesterol management includes atorvastatin. General: The patient has been managing obesity with semaglutide. Overall he is close to about 40 lb that he has lost since starting Wegovy. He states that he is going to start tapering off of this because it is causing stomach upset. He states that he has generalized abdominal discomfort especially with this medication. It is getting better since he is tapering down. He does not think he wants to take any other medications for weight loss and would like to see a bariatric surgeon. He has tried and failed numerous diets including Atkins, [place], keto etc.. Musculoskeletal: Patient's knee pain persists, likely exacerbated by obesity. He frequently experiences knee pain, but it has not shown improvement even with weight loss efforts. Gout has been under control with colchicine taken as needed for flares and allopurinol. Endo: His thyroid function is managed with levothyroxine. Colonoscopy: due in 2025 [facility] Medical History (Updated 09/16/24 @ 14:42 by Marian Abdul PA-C) Tubular adenoma of colon SOB (shortness of breath) on exertion Prediabetes Osteoarthritis Lower leg edema Kidney stone Hypothyroidism HTN (hypertension) Hypercholesteremia Gout GERD (gastroesophageal reflux disease) Degenerative joint disease of knee Class 3 severe obesity with serious comorbidity and body mass index (BMI) of 60.0 to 69.9 in adult Chronic neck pain Family History Mother Cancer of breast Father Diabetes Hypercholesteremia Social History (Updated 05/13/24 @ 14:08 by Jesica Goss CMA) Housing: Apartment Alcohol intake: current Patient Tobacco Use Status: Never used Tobacco e-Cigarette/Vaping Use: Never Used Second Hand Smoke Exposure: No service: No Current occupational status: employed 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 Current occupational exposures/hazards: No Cognitive needs: No Hearing needs: No Vision needs: Yes (reading glasses) Questionnaire Thrive Questionnaire Date Thrive assessed: 05/13/24 I am a: Patient What is your living situation today?: I choose not to answer this question Within the past 12 months, did the food you bought not last and you didn't have the money to get more?: Never true Within the past 12 months, did you worry whether your food would run out before you got money to buy more?: Never true Do you have trouble paying for medicines?: No Do you have trouble getting transportation to medical appointments?: No Do you have trouble paying your heating and electricity bill?: No Do you have trouble taking care of your child, family member or friend?: No Do you have trouble with day-to-day activities such as bathing, preparing meals, shopping, managing finances, etc.?: No Are you currently unemployed and looking for a job?: No Are you interested in more education?: No Please select the resources that you would like help with: None Currently or been in a relationship where the following occur: No concerns reported THRIVE Score: 0 AUDIT C Alcohol Use Questionnaire (AUDIT-C) 1. How often do you have a drink containing alcohol?: 2-3 times a week 2. How many drinks containing alcohol do you have on a typical day when you are drinking?: 5 or 6 (3-4 drinks and a couple shots ) 3. How often do you have six or more drinks on one occasion?: Never Total Score: 5 PRAKASH-7 AMB Questionnaire PRAKASH-7 Date PRAKASH - 7 assessed: 05/13/24 Source: Developed by Drs. Danish Marquis, Gloria De Leon, Venu Correa and colleagues, with an educational royer from [employer]. Physical exam (Primary Care) Vital Signs: Last Vital Signs Temp 98.2 F 09/16/24 14:04 Pulse 96 09/16/24 14:04 Resp 16 09/16/24 14:04 BP 103/56 L 09/16/24 14:14 Pulse Ox 93 09/16/24 14:04 Oxygen Delivery Method Room Air 09/16/24 14:04 BMI result Body Mass Index 59.8 Tobacco/Smoking Status: Tobacco use Status Tobacco use date assessed 05/13/24 09/16/24 14:21 Patient Tobacco Use Status Never used Tobacco 09/16/24 14:21 e-Cigarette/Vaping Use Never Used 09/16/24 14:21 Thrive Assessment: Date of Thrive Assessment Date Thrive assessed 05/13/24 09/16/24 14:21 Currently or been in a relationship where the following occur: No concerns reported Const Orientation/consciousness: patient oriented x3 HENMT Ears: hearing grossly normal bilaterally Neck Thyroid: Thyroid normal Lymphatic: no lymphadenopathy noted Resp Auscultation: clear to auscultation bilaterally Cardio Rate: regular rate Rhythm: regular rhythm Heart sounds: S1 normal heart sound present and S2 normal heart sound present GI Inspection: Yes normal to inspection Palpation (GI): Soft to palpation and Other GI palpation findings present (nontender, no cva tenderness) Auscultation: normoactive bowel sounds Rectal Exam - Male: Yes deferred Skin General skin exam: no rashes or lesions noted Neuro General: patient oriented x3, gait normal and no focal motor deficits Coding Level of Care Code Est Pt Level 4 (09820) Complex EM visit Add On G2211 Diagnoses Class 3 severe obesity due to excess calories with serious comorbidity and body mass index (BMI) of 60.0 to 69.9 in adult E66.01; Z68.44 Obesity type: due to excess calories HTN (hypertension) I10 Hypercholesteremia E78.00 Abdominal discomfort R10.9 Assessment & Plan Assessment & Plan (1) Class 3 severe obesity with serious comorbidity and body mass index (BMI) of 60.0 to 69.9 in adult: Code(s): E66.01 - Morbid (severe) obesity due to excess calories; Z68.44 - Body mass index [BMI] 60.0-69.9, adult Category: Medical Qualifiers: Obesity type: due to excess calories Qualified Code(s): E66.01 - Morbid (severe) obesity due to excess calories; Z68.44 - Body mass index [BMI] 60.0- 69.9, adult Plan: referral to weight management (2) HTN (hypertension): Code(s): I10 - Essential (primary) hypertension Category: Medical Plan: Continue current regimen (3) Hypercholesteremia: Code(s): E78.00 - Pure hypercholesterolemia, unspecified Category: Medical Plan: As above. (4) Abdominal discomfort: Code(s): R10.9 - Unspecified abdominal pain Category: Medical Plan: Abdominal exam is benign. Ultrasound ordered. Labs ordered. We will monitor. Orders: Orders US abdomen complete Today R10.9 - Unspecified abdominal pain Complete Blood Count Auto Diff Today E66.01 - Morbid (severe) obesity due to excess calories, E78.00 - Pure hypercholesterolemia, unspecified, I10 - Essential (primary) hypertension, R73.03 - Prediabetes, Z68.44 - Body mass index [BMI] 60.0-69.9, adult Lipid Panel Today E66.01 - Morbid (severe) obesity due to excess calories, E78.00 - Pure hypercholesterolemia, unspecified, I10 - Essential (primary) hypertension, R73.03 - Prediabetes, Z68.44 - Body mass index [BMI] 60.0-69.9, adult TSH reflex Free T4 Today E66.01 - Morbid (severe) obesity due to excess calories, E78.00 - Pure hypercholesterolemia, unspecified, I10 - Essential (primary) hypertension, R73.03 - Prediabetes, Z68.44 - Body mass index [BMI] 60.0-69.9, adult Microalbumin, Random (w Creat) Today E66.01 - Morbid (severe) obesity due to excess calories, E78.00 - Pure hypercholesterolemia, unspecified, I10 - Esse ntial (primary) hypertension, R73.03 - Prediabetes, Z68.44 - Body mass index [BMI] 60.0-69.9, adult Hemoglobin A1c Today E66.01 - Morbid (severe) obesity due to excess calories, E78.00 - Pure hypercholesterolemia, unspecified, I10 - Essential (primary) hypertension, R73.01 - Impaired fasting glucose, R73.03 - Prediabetes, Z68.44 - Body mass index [BMI] 60.0-69.9, adult Comprehensive Met. Panel Today E66.01 - Morbid (severe) obesity due to excess calories, E78.00 - Pure hypercholesterolemia, unspecified, I10 - Essential (primary) hypertension, R73.03 - Prediabetes, Z68.44 - Body mass index [BMI] 60.0-69.9, adult Prostate Specific Antigen Scr Today E66.01 - Morbid (severe) obesity due to excess calories, E78.00 - Pure hypercholesterolemia, unspecified, I10 - Essential (primary) hypertension, R73.03 - Prediabetes, Z01.89 - Encounter for other specified special examinations, Z68.44 - Body mass index [BMI] 60.0-69.9, adult Referrals Bariatric Surgery Referral E66.01 - Morbid (severe) obesity due to excess calories, Z68.44 - Body mass index [BMI] 60.0-69.9, adult
[2024-09-16 14:14] VITALS: BP 103/56
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
== END 2024-09-16 14:45 | disposition home or self-care (01) ==
LOC: HO.HMCFM 14:01
PROVIDERS: PCP Physician Assistant; Visit Provider Physician Assistant
DX: E66.01 Morbid (severe) obesity due to excess calories (principal); Z68.44 Body mass index [BMI] 60.0-69.9, adult; I10 Essential (primary) hypertension; E78.00 Pure hypercholesterolemia, unspecified; R10.9 Unspecified abdominal pain

== ENCOUNTER 2024-11-06 08:17 | Outpatient (AMB) | payer BC, SELFPAY ==
--- OUTSIDE RECORDS SUMMARY | 2024-11-06 08:44 | XMS_ITS | Clinical Summary ---
Author Organization [facility] Address [address] [place] [address] Phone Care Team Providers Care Import/Export Administrator Name Role Phone Mary Anne Jeffrey MD Primary Care Provider [phone] Allergies No known active allergies Medications Wegovy [...] - Risk 60-74 years 1-dose series) 2023 Depression Screening 02/19/2024 Hypertension/CHF/CAD Annual BMP Blood Test 03/02/2024 COVID-19 Vaccine (3 - 2024-2 6 season) 2024 06/18/2020, 05/27/2020 Influenza Vaccine (#1) 2024 DTaP,Tdap,and Td Vaccines [...] Maintenance Results * COLONOSCOPY Anesthesia - MAC; [facility] ENDOSCOPY (03/02/2024 3:46 PM EST) Anatomical [...] was suboptimal. Narrative 03/02/2024 3:45 PM EST [facility] GI Patient Name: Lupillo Hernandez Procedure [...] history of colonic polyps CPT copyright 2020 [employer]. All rights reserved. The codes documented in this report are preliminary and upon tool and die supervisor review may be revised to meet current compliance requirements. Roxanne Uriostegui MD 03/02/2024 3:45:30 PM This report has been signed electronically.Roxanne Uriostegui MD Number of Addenda: 0 Note Initiated On: 03/02/2024 3:20 PM Scope In: Scope Out: Endoscopy Department at [facility] - [address] [place] [id number] Procedure Note Roxanne Uriostegui MD - 03/02/2024 [facility] GI Patient Name: Lupillo Hernandez Procedure [...] history of colonic polyps CPT copyright 2020 [employer]. All rights reserved. The codes documented in this report are preliminary and upon tool and die supervisor reviewmay be revised to meet current compliance requirements. Roxanne Uriostegui MD 03/02/2024 3:45:30 PM This report has been signed electronically.Roxanne Uriostegui MD Number of Addenda: 0 Note Initiated On: 03/02/2024 3:20 PM Scope In: Scope Out: Endoscopy Department at [facility] - [address] [place] [phone] IMPRESSION: - Preparation of the colon was [...] Most Recently Relevant to Health Maintenance Insurance [employer] [place] Care Teams Import/Export Administrator Relationship Specialty Start Date End Date Mary Anne Jeffrey MD PCP - General Internal Medicine 03/02/24
--- NOTE | 2024-11-06 10:26 | MHC.OFFVISWM ---
VS Expanded 11/06/24 10:38 Height 5 ft 10 in Weight 433 lb BMI 62.1 Body Fat % 51.2 Body Fat Mass 221.8 Fat Free Mass 211.2 Visceral Fat Rating 46 Body Water % 39 Body Water Mass 168.8 Basal Metabolic Rate/Score 3,155 Intake Visit Reasons: [employer] BMI 62.1 Allergies No Known Allergies Allergy (Verified 11/06/24 10:26) Medication List - Last Reconciled 11/06/24 by Raz Ramey MD allopurinol 100 mg PO BID atorvastatin 10 mg PO DAILY colchicine 0.6 mg PO BID diclofenac sodium 50 mg PO BID furosemide 40 mg (2 x 20 mg) PO DAILY levothyroxine 25 mcg PO DAILY lisinopril 10 mg PO DAILY omeprazole 40 mg PO DAILY HPI HPI [employer] BMI 62.1: Details: Start time: 10.05am, End time: 11.05am ?I spent 55 minutes speaking with the patient on the phone plus an additional 5 minutes reviewing and updating records for a total of 60 minutes HPI Comments Details: Previous weight loss efforts: used Wegovy and lost 35lbs paying $8,000. Severe side effects. Regained weight back Wakes up: 5am, Sleeps: 8pm Breakfast: 9am (muffin) Lunch: 12pm (sandwich with a fruit) Dinner: 5-6pm (meat, starch, vegetables) Snacks: 8pm (chocolate) Exercise: has rowing machine Beverages: Coffee: (3 cups/d with Splenda and creamer), Tea: none, Soda: diet Coke, Juice: none, ETOH: 4-5/wk (2 beers and shots) [facility] Medical History (Updated 11/06/24 @ 10:31 by Raz Ramey MD) Tubular adenoma of colon SOB (shortness of breath) on exertion Prediabetes Osteoarthritis Lower leg edema Kidney stone Hypothyroidism HTN (hypertension) Hypercholesteremia Gout GERD (gastroesophageal reflux disease) Degenerative joint disease of knee Class 3 severe obesity with serious comorbidity and body mass index (BMI) of 60.0 to 69.9 in adult Chronic neck pain Surgical History (Updated 11/04/24 @ 08:41 by Minoo Mills CMA) Hx of colonoscopy Hx of tooth extraction Family History Mother Cancer of breast Father Diabetes Hypercholesteremia Social History (Updated 05/13/24 @ 14:08 by Jesica Goss CMA) Housing: Apartment Alcohol intake: current Patient Tobacco Use Status: Never used Tobacco e-Cigarette/Vaping Use: Never Used Second Hand Smoke Exposure: No service: No Current occupational status: employed 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 Current occupational exposures/hazards: No Cognitive needs: No Hearing needs: No Vision needs: Yes (reading glasses) Telehealth Telehealth Telehealth Platform: Telephone Location of provider rendering services: practice address Location of patient: address on file Patient Identification confirmed using: Name, : Yes Telehealth method: voice only Patient verbally consented to treatment: Yes Patient verbally consented to billing insurance company: Yes Patient informed of any privacy concerns related to visit: Yes Minutes spent on Phone/Video with Pt.: 60 Assessment & Plan Assessment & Plan (1) Class 3 severe obesity with serious comorbidity and body mass index (BMI) of 60.0 to 69.9 in adult: Code(s): E66.01 - Morbid (severe) obesity due to excess calories; Z68.44 - Body mass index [BMI] 60.0-69.9, adult Category: Medical Qualifiers: Obesity type: due to excess calories Qualified Code(s): E66.01 - Morbid (severe) obesity due to excess calories; Z68.44 - Body mass index [BMI] 60.0-69.9, adult Plan: 1.? Plan for lap sleeve gastrectomy. If diaphragmatic or ventral hernias are present at time of surgery, these will be repaired laparoscopically as well. I emphasized the importance of close follow-up, adherence to instructions and good communication. The surgery does not replace the need to change your lifestlyle which is the cause of the obesity problem. The surgery provides the motivation to try again to change your lifestyle, it reduces the appetite and make the transition to a better lifestyle easier and doubles the amount of weight you would lose compared to doing the lifestyle change without the surgery. You will need to be on a liquid diet with protein shakes for 2 weeks before surgery to maximize weight loss and boost your nutritional status to recover better from surgery and also for the first two weeks after surgery to let the stomach heal before we introduce other foods. After the first 2 weeks we will introduce protein bars and soft foods like scrambled eggs, cottage cheese and yogurt and after the 6th week will introduce meat, fish and cooked vegetables in small amounts. Over time you should be able to eat everything in small amounts. Side effects like nausea, vomiting, heartburn or abdominal pain are not common in the practice unless you are not following in the practice. This operation requires lifetime commitment to following in our practice and communication with me. You will much less weight and experience side effects if you don?t communicate or not following in the practice. Complications are rare and in our practice is about 1/10 of the national average. However, you can develop bleeding that may require transfusion (hasn?t happened for year in the practice), you may from complications (we did not have any deaths in the practice) and infections. Infections are usually a result of breakdown in communication or not understanding or following directions correctly. They are difficult to treat, they can happen during the first 6 weeks, they may require to be in the hospital for weeks or even months, not being able to eat by mouth and you may have drains and surgeries to try and correct the issue. Other risks and complications include possible conversion to an open procedure, leaks, small bowel obstruction, blood clots, cardiac, or pulmonary complications, as exterminator complications such as ulcers, insufficient weight loss and vitamin deficiencies. 2. Nutritional counseling. Start with one premade PREMIER protein (buy at [employer] or [employer]) shake (8oz of Premier and NOT the whole bottle) at 6am-8am, one protein bar (Fit Crunch protein bar, buy at [employer], or [employer]) at 9am-11am, another premade PREMIER protein shake (8oz of Premier and NOT the whole milk) at 12pm-2pm, another [employer] Crunch protein bar at 3pm-5pm,?dinner at 6pm (14 forks of protein and 14 forks of salad/vegetables). So you do 2 protein shakes, 2 protein bars and one meal per day. Meal to include lean meat (beef, fish, pork, turkey, chicken), or frisian yogurt, or egg whites, or beans with a salad with olive oil and fruits (berries, pears, apples, kiwi). Avoid salt, breads, potatoes, rice, pasta, desserts. 3. Each shake would be drunk slowly, like coffee in a period of 2 hours. 4. Cut each bar in 4 pieces and eat each piece in 30min ?to make each bar last 2 hours. 5. I emphasized the importance of measuring accurately the food portion and measure it when serving the food in plate 6. The meal portions include 14 full-size forks of meat and 14 full-size forks of salad. You always eat the meat portion but you can replace up to 7 forks for salad/vegetables with rice, potatoes or pasta, or a fruit ?if you like. The less you do it the better weight loss will be. 7. One full-size fork is what it can be scooped on the fork without falling aside and not what can be bit with the fork. Use regular forks like those you find in a typical restaurant. 8.? Please buy the body composition scale we discussed and send me weight measurements as soon as possible and then once a week. Always include your diet and exercise plan. 9. You can use the rowing machine for 300 calories per day daily. You could split this in 3 separate sessions of 100 calories each. 10. Alternatively the best choice would be to purchase a stationary bike, at home that can track calories. If you get one, please start the stationary bike at a resistance level of 0.0 Increase level by 1.0 every 3 min to a max level of 6.0. Stay at this level for 3 min and then return to level 0.0 and repeat same steps until 300 calories are burned. Goal is to burn 2000 calories per week on exercise 12. Goal is to lose at least 1.5-2lbs per week 13. Goal to lose 10% of your weight before surgery, which is about 43lbs. Ultimate weight goal: 390lbs before surgery 14. Please follow the diet plan exactly without any change. If you don't like something about the plan or you feel hungry you need to communicate with me so I can help you revise the plan. You should not change the plan yourself 15. To be scheduled for EGD to assess the stomach's anatomy. The possibility of biopsies was discussed. Patient needs to avoid use of NSAIDs and aspirin for 1 week prior to EGD. You must be on liquids only the day before your endoscopy. Risks of perforation and bleeding was discussed with the patient. This will be an outpatient procedure with IV sedation. Orders: Orders Hemoglobin A1c Today E03.9 - Hypothyroidism, unspecified, E66.01 - Morbid (severe) obesity due to excess calories, E78.00 - Pure hypercholesterolemia, unspecified, I10 - Essential (primary) hypertension, K21.9 - Gastro-esophageal reflux disease without esophagitis, R73.03 - Prediabetes, Z68.44 - Body mass index [BMI] 60.0-69.9, adult H Pylori Breath Test Today E03.9 - Hypothyroidism, unspecified, E66.01 - Morbid (severe) obesity due to excess calories, E78.00 - Pure hypercholesterolemia, unspecified, I10 - Essential (primary) hypertension, K21.9 - Gastro-esophageal reflux disease without esophagitis, R73.03 - Prediabetes, Z68.44 - Body mass index [BMI] 60.0-69.9, adult IRON PROFILE Today E03.9 - Hypothyroidism, unspecified, E66.01 - Morbid (severe) obesity due to excess calories, E78.00 - Pure hypercholesterolemia, unspecified, I10 - Essential (primary) hypertension, K21.9 - Gastro-esophageal reflux disease without esophagitis, R73.03 - Prediabetes, Z68.44 - Body mass index [BMI] 60.0-69.9, adult Vitamin B12 and Folate Today E03.9 - Hypothyroidism, unspecified, E66.01 - Morbid (severe) obesity due to excess calories, E78.00 - Pure hypercholesterolemia, unspecified, I10 - Essential (primary) hypertension, K21.9 - Gastro-esophageal reflux disease without esophagitis, R73.03 - Prediabetes, Z68.44 - Body mass index [BMI] 60.0-69.9, adult C Reactive Protein Today E03.9 - Hypothyroidism, unspecified, E66.01 - Morbid (severe) obesity due to excess calories, E78.00 - Pure hypercholesterolemia, unspecified, I10 - Essential (primary) hypertension, K21.9 - Gastro-esophageal reflux disease without esophagitis, R73.03 - Prediabetes, Z68.44 - Body mass index [BMI] 60.0-69.9, adult Vitamin B1 Today E03.9 - Hypothyroidism, unspecified, E66.01 - Morbid (severe) obesity due to excess calories, E78.00 - Pure hypercholesterolemia, unspecified, I10 - Essential (primary) hypertension, K21.9 - Gastro-esophageal reflux disease without esophagitis, R73.03 - Prediabetes, Z68.44 - Body mass index [BMI] 60.0-69.9, adult TSH reflex Free T4 Today E03.9 - Hypothyroidism, unspecified, E66.01 - Morbid (severe) obesity due to excess calories, E78.00 - Pure hypercholesterolemia, unspecified, I10 - Essential (primary) hypertension, K21.9 - Gastro-esophageal reflux disease without esophagitis, R73.03 - Prediabetes, Z68.44 - Body mass index [BMI] 60.0-69.9, adult Vitamin D 25-OH Total Today E03.9 - Hypothyroidism, unspecified, E66.01 - Morbid (severe) obesity due to excess calories, E78.00 - Pure hypercholesterolemia, unspecified, I10 - Essential (primary) hypertension, K21.9 - Gastro-esophageal reflux disease without esophagitis, R73.03 - Prediabetes, Z68.44 - Body mass index [BMI] 60.0-69.9, adult ECG 12 lead EKG Today E03.9 - Hypothyroidism, unspecified, E66.01 - Morbid (severe) obesity due to excess calories, E78.00 - Pure hypercholesterolemia, unspecified, I10 - Essential (primary) hypertension, K21.9 - Gastro-esophageal reflux disease without esophagitis, R73.03 - Prediabetes, Z68.44 - Body mass index [BMI] 60.0-69.9, adult FL upper GI w air Today E03.9 - Hypothyroidism, unspecified, E66.01 - Morbid (severe) obesity due to excess calories, E78.00 - Pure hypercholesterolemia, unspecified, I10 - Essential (primary) hypertension, K21.9 - Gastro-esophageal reflux disease without esophagitis, R73.03 - Prediabetes, Z68.44 - Body mass index [BMI] 60.0-69.9, adult Insulin Today E03.9 - Hypothyroidism, unspecified, E66.01 - Morbid (severe) obesity due to excess calories, E78.00 - Pure hypercholesterolemia, unspecified, I10 - Essential (primary) hypertension, K21.9 - Gastro-esophageal reflux disease without esophagitis, R73.03 - Prediabetes, Z68.44 - Body mass index [BMI] 60.0-69.9, adult Complete Blood Count Auto Diff Today E03.9 - Hypothyroidism, unspecified, E66.01 - Morbid (severe) obesity due to excess calories, E78.00 - Pure hypercholesterolemia, unspecified, I10 - Essential (primary) hypertension, K21.9 - Gastro-esophageal reflux disease without esophagitis, R73.03 - Prediabetes, Z68.44 - Body mass index [BMI] 60.0-69.9, adult Lipid Panel Today E03.9 - Hypothyroidism, unspecified, E66.01 - Morbid (severe) obesity due to excess calories, E78.00 - Pure hypercholesterolemia, unspecified, I10 - Essential (primary) hypertension, K21.9 - Gastro-esophageal reflux disease without esophagitis, R73.03 - Prediabetes, Z68.44 - Body mass index [BMI] 60.0-69.9, adult Comprehensive Met. Panel Today E03.9 - Hypothyroidism, unspecified, E66.01 - Morbid (severe) obesity due to excess calories, E78.00 - Pure hypercholesterolemia, unspecified, I10 - Essential (primary) hypertension, K21.9 - Gastro-esophageal reflux disease without esophagitis, R73.03 - Prediabetes, Z68.44 - Body mass index [BMI] 60.0-69.9, adult Zinc Today E03.9 - Hypothyroidism, unspecified, E66.01 - Morbid (severe) obesity due to excess calories, E78.00 - Pure hypercholesterolemia, unspecified, I10 - Essential (primary) hypertension, K21.9 - Gastro-esophageal reflux disease without esophagitis, R73.03 - Prediabetes, Z68.44 - Body mass index [BMI] 60.0-69.9, adult Vitamin A Today E03.9 - Hypothyroidism, unspecified, E66.01 - Morbid (severe) obesity due to excess calories, E78.00 - Pure hypercholesterolemia, unspecified, I10 - Essential (primary) hypertension, K21.9 - Gastro-esophageal reflux disease without esophagitis, R73.03 - Prediabetes, Z68.44 - Body mass index [BMI] 60.0-69.9, adult Ferritin Today E03.9 - Hypothyroidism, unspecified, E66.01 - Morbid (severe) obesity due to excess calories, E78.00 - Pure hypercholesterolemia, unspecified, I10 - Essential (primary) hypertension, K21.9 - Gastro-esophageal reflux disease without esophagitis, R73.03 - Prediabetes, Z68.44 - Body mass index [BMI] 60.0-69.9, adult US abdomen comp w elastography Today E03.9 - Hypothyroidism, unspecified, E66.01 - Morbid (severe) obesity due to excess calories, E78.00 - Pure hypercholesterolemia, unspecified, I10 - Essential (primary) hypertension, K21.9 - Gastro-esophageal reflux disease without esophagitis, R73.03 - Prediabetes, Z68.44 - Body mass index [BMI] 60.0-69.9, adult XR chest 2V Today E03.9 - Hypothyroidism, unspecified, E66.01 - Morbid (severe) obesity due to excess calories, E78.00 - Pure hypercholesterolemia, unspecified, I10 - Essential (primary) hypertension, K21.9 - Gastro-esophageal reflux disease without esophagitis, R73.03 - Prediabetes, Z68.44 - Body mass index [BMI] 60.0-69.9, adult Referrals Behavioral Health Referral E03.9 - Hypothyroidism, unspecified, E66.01 - Morbid (severe) obesity due to excess calories, E78.00 - Pure hypercholesterolemia, unspecified, I10 - Essential (primary) hypertension, K21.9 - Gastro-esophageal reflux disease without esophagitis, R73.03 - Prediabetes, Z68.44 - Body mass index [BMI] 60.0-69.9, adult Nutrition/Dietitian Referral E03.9 - Hypothyroidism, unspecified, E66.01 - Morbid (severe) obesity due to excess calories, E78.00 - Pure hypercholesterolemia, unspecified, I10 - Essential (primary) hypertension, K21.9 - Gastro-esophageal reflux disease without esophagitis, R73.03 - Prediabetes, Z68.44 - Body mass index [BMI] 60.0-69.9, adult
[2024-11-06 10:38] VITALS: BMI 62.1
== END 2024-11-06 11:07 | disposition home or self-care (01) ==
LOC: HO.HBS 08:17
PROVIDERS: PCP Physician Assistant; Visit Provider Surgery
DX: E66.01 Morbid (severe) obesity due to excess calories (principal); Z68.44 Body mass index [BMI] 60.0-69.9, adult
CPT/HCPCS: 99205